=== PATIENT | female | born 1980 | race Caucasian/White ===

== ENCOUNTER → 2017-11-22 10:23 | Outpatient (CLI) | payer MEDICARE, MEDICAID, SELFPAY ==
[2017-11-22 12:55] LABS: Anion Gap 5 (5-15); BUN 19 mg/dL (7-18); BUN/Creat Ratio 23.5 RATIO (10-20); Calcium,Total 8.4 mg/dL (8.5-10.1); Chloride 110 mmol/L (98-107); Creatinine, Serum 0.81 mg/dL (0.55-1.02); EST Glomerular Filtration Rate 84 mL/min (>60); Est Glom Filt Rate - Afr Amer 101 mL/min (>60); Glucose 97 mg/dL (74-106); Potassium 3.9 mmol/L (3.5-5.1); Sodium Level 139 mmol/L (136-145)
== END ==
PROVIDERS: Family Provider Family Medicine; PCP Family Medicine; Visit Provider Family Medicine
DX: G43.819 Other migraine, intractable, without status migrainosus (principal)
CPT/HCPCS: 36415; 80048; 80201

== ENCOUNTER 2018-01-28 06:03 | Day surgery (SDC) | payer MEDICARE, MEDICAID, SELFPAY ==
[2018-01-28] VITALS (7 sets, daily range): BP systolic 100–114; BP diastolic 79–88; PULSE 46–81; RESP 12–16; TEMP 36.1–37.6; O2SAT 94–100; BMI 23.1
[2018-01-28] MEDS: Dibucaine 30 GM Tube 1 APPLIC (07:53)
[2018-01-28] MEDS: Bupivacaine Mpf 0.5% 30 ML VIAL (08:00)
--- NOTE | 2018-01-28 08:07 | PCM.OPRPT ---
Report of Operation Date of Procedure: 01/28/18 Pre-Operative Diagnosis: anal pain, suspect posterior fissure Post-Operative Diagnosis: anal pain, small posterior anal fissure, no other abnormalities Surgery/Procedure Performed:: examination under anesthesia, lateral internal sphincterotomty brickmason helper: None Type of Anesthesia:: General Anesthesiologist: Robert Egan - ASA2 Specimen's removed: none Estimated Blood Loss (mL): minimal Fluids Replaced: 500 Description of Procedure: The patient was brought to the operating suite. Sign in was performed verifying patient, site, procedure, position, and DVT prophylaxis with SCDs. Clindamycin 900mg was given Following induction of general anesthetic. The patient was transferred to supine position to the prone jackknife position with care being taken to avoid pressure points. The patient?s perineal area was then prepped and draped in the usual fashion. Timeout was performed verifying patient, site, procedure, and position. Bi digital exam revealed no obvious palpable abnormalities external abnormalities. There was a posterior midline fissure noted by palpation. Anoscopy demonstrated a posterior midline fissure without additional abnormalities. A left lateral skin incision was made just lateral to the dentate line. Electrocautery was used to divide the superficial external sphincter to the same depth posteriorly as the posterior midline fissure. Care was taken to assure there was not excessive division of the sphincter. Following this the skin incision was closed with 4-0 chromic suture. With good hemostasis, half percent Marcaine was injected in the perianal skin and dibucaine impregnated Gelfoam was placed in the anal canal. A dressing was applied and mesh pants were used to hold the dressing in place. The patient was returned to the supine position and extubated and brought to recovery room in stable condition. - Admit VTE Documentation VTE Present on Admission: No VTE Mechan Device Prophylaxis: SCD's VTE Pharm Prophylaxis ordered?: No
--- NOTE | 2018-01-28 08:10 | OP.PCM_ITS ---
Report of Operation Date of Procedure: 01/28/18 Pre-Operative Diagnosis: anal pain, suspect posterior fissure Post-Operative Diagnosis: anal pain, small posterior anal fissure, no other abnormalities Surgery/Procedure Performed:: examination under anesthesia, lateral internal sphincterotomty medical housekeeper: None Type of Anesthesia:: General Anesthesiologist: Robert Egan - ASA2 Specimen's removed: none Estimated Blood Loss (mL): minimal Fluids Replaced: 500 Description of Procedure: The patient was brought to the operating suite. Sign in was performed verifying patient, site, procedure, position, and DVT prophylaxis with SCDs. Clindamycin 900mg was given Following induction of general anesthetic. The patient was transferred to supine position to the prone jackknife position with care being taken to avoid pressure points. The patient?s perineal area was then prepped and draped in the usual fashion. Timeout was performed verifying patient, site, procedure, and position. Bi digital exam revealed no obvious palpable abnormalities external abnormalities. There was a posterior midline fissure noted by palpation. Anoscopy demonstrated a posterior midline fissure without additional abnormalities. A left lateral skin incision was made just lateral to the dentate line. Elec trocautery was used to divide the superficial external sphincter to the same depth posteriorly as the posterior midline fissure. Care was taken to assure there was not excessive division of the sphincter. Following this the skin incision was closed with 4-0 chromic suture. With good hemostasis, half percent Marcaine was injected in the perianal skin and dibucaine impregnated Gelfoam was placed in the anal canal. A dressing was applied and mesh pants were used to hold the dressing in place. The patient was returned to the supine position and extubated and brought to recovery room in stable condition. - Admit VTE Documentation VTE Present on Admission: No VTE Mechan Device Prophylaxis: SCD's VTE Pharm Prophylaxis ordered?: No
--- NOTE | 2018-01-28 08:19 | DCINST_ITS ---
Discharge Diet: No Restrictions Discharge Activity: Return to Normal Activity, May Not Drive - while taking narcotic pain medications. Additional Activity Instructions:: Do not drive or work with heavy equipment or sign legal documents for 24 hours. Be aware that pain medications may cause nausea. You should typically eat light foods as you take your pain medications. Pain medications may also cause constipation, if you have difficulty with this please discuss with your doctor. Additional Dressing/Incision Instructions:: Leave the operative bandage on for 2 days. If a local anesthetic plug was placed in the anal area, try not to expel for 24-[address] dibucaine ointment on the perianal area as needed. Sitz baths twice daily and after bowel movements. Allergies/Adverse Reactions: Allergies calcium [From DHEA] Allergy (Mild, Verified 01/24/18 12:42) Unknown calcium carbonate [From DHEA] Allergy (Mild, Verified 01/24/18 12:42) Unknown metronidazole [From Flagyl] Allergy (Mild, Verified 01/24/18 12:42) Unknown oxcarbazepine [From Trileptal] Allergy (Mild, Verified 01/24/18 12:42) Unknown prasterone (DHEA) [From DHEA] Allergy (Mild, Verified 01/24/18 12:42) Unknown sumatriptan [From Imitrex] Allergy (Mild, Verified 01/24/18 12:42) Unknown duloxetine [From Cymbalta] Allergy (Verified 01/24/18 12:43) Unknown gabapentin [From Neurontin] Allergy (Verified 01/24/18 12:43) Unknown hydromorphone [From Dilaudid] Allergy (Verified 01/24/18 12:44) Unknown keppra Allergy (Mild, Uncoded 01/24/18 12:42) Unknown Medications to take at Discharge acyclovir 400 mg tablet 400 mg PO BID PRN 01/25/17 aspirin 81 mg tablet,delayed release 81 mg PO QHS 01/25/17 clobazam 10 mg tablet 10 mg PO BID 01/25/17 lacosamide 100 mg tablet 300 mg PO BID 01/25/17 spironolactone 100 mg tablet 100 mg PO QDAY 01/25/17 topiramate 100 mg tablet 300 mg PO BID 03/06/17 Linacolotide [Linzess] 145 mcg PO DAILY 01/24/18 Spironolactone [Aldactone] 50 mg PO QHS 01/24/18 Dibucaine 1 applic TOPICAL PRN PRN #1 tube 01/28/18 Oxycodone HCl/Acetaminophen [Percocet 5/325] 1 tab PO Q6H PRN PRN 7 Days #14 tab 01/28/18 The following prescriptions were given: Oxycodone HCl/Acetaminophen [Percocet 5/325] 1 tab PO Q6H PRN PRN 7 Days #14 tab PRN Reason: Anal/Rectal Irritations Dibucaine 1 applic TOPICAL PRN PRN #1 tube PRN Reason: Anal/Rectal Irritations Primary Care Physician: Major Garner MD [Primary Care Provider] - Test Results: Test results from this visit will be discussed in further detail at your follow- up appointment, if applicable. Please Follow Up With: Aris Cook MD - [phone] When: Plan to have a follow up approximately 7 days after surgery.
[2018-01-28] MEDS: oxyCODONE 5 MG Tablet PO (09:39)
[2018-01-28] MEDS: Acetaminophen 325 MG Tablet PO (09:40)
== END 2018-01-28 10:22 | disposition home or self-care (01) ==
LOC: SDC 06:03 → AC 06:05
PROVIDERS: Family Provider Family Medicine; PCP Family Medicine; Referring Provider Surgery; Visit Provider Surgery
PROC: (CPT 46080; principal; 2018-01-28 07:15)
DX: K60.2 Anal fissure, unspecified (principal); G40.909 Epilepsy, unspecified, not intractable, without status epilepticus; A60.9 Anogenital herpesviral infection, unspecified; F43.23 Adjustment disorder with mixed anxiety and depressed mood; Z79.82 Long term (current) use of aspirin; Z79.899 Other long term (current) drug therapy; Z86.73 Personal history of transient ischemic attack (TIA), and cerebral infarction without residual deficits; Z86.2 Personal history of diseases of the blood and blood-forming organs and certain disorders involving the immune mechanism
CPT/HCPCS: 00902; 46080; J7120

== ENCOUNTER → 2018-04-11 08:54 | Outpatient (CLI) | payer MEDICARE, MEDICAID, SELFPAY ==
[2018-01-28 06:43] VITALS: BMI 23.1
[2018-03-21 09:17] VITALS: BMI 23.1
--- NOTE | 2018-04-11 08:59 | BI_ITS ---
MAMMOGRAPHY - BILATERAL SCREENING REASON FOR EXAM: Female, 37 years old. Routine annual screening examination. PERTINENT HISTORY: Non-contributory. TECHNIQUE: Digital bilateral breast chalino (3D mammographic acquisition) in the CC and MLO projections. 2-D mediolateral oblique (MLO) and craniocaudad (CC) views of both breasts were obtained. CAD: Full Field Digital Mammography with Computer Added Detection was performed. COMPARISON: Comparison is made with prior study dated March 14, 2017 and February 09, 2016. FINDINGS: Breast Composition: The breasts are heterogeneously dense, which may obscure small masses. There are no dominant masses or suspicious calcifications. Questionable 1.7 cm nodular density in the upper outer aspect of the left breast. Correlation with ultrasound is recommended. No other significant abnormalities are identified. BI/SCREEN MAMM (CAD) W/CHALINO BILAT IMPRESSION: Possible 1.7 cm well-defined nodular density in the upper outer quadrant of the left breast. Correlation with ultrasound is recommended. ASSESSMENT CATEGORY: BIRADS Category 0: Incomplete. Need additional imaging evaluation. A letter regarding these results will be sent to the patient by the facility within 30 days. Approximately 10% of breast cancers are not detected by mammography. A normal mammogram should not delay biopsy of a clinically suspicious abnormality. [id number] Electronically Signed: Cyrus Haywood MD at 10:18 EST , Service support ,
== END ==
PROVIDERS: Family Provider Family Medicine; PCP Family Medicine; Visit Provider Nurse Practitioner Women's Health
DX: Z12.31 Encounter for screening mammogram for malignant neoplasm of breast (principal)
CPT/HCPCS: 77063; 77067

== ENCOUNTER → 2018-04-19 08:23 | Outpatient (CLI) | payer MEDICARE, MEDICAID, SELFPAY ==
[2018-03-21 09:17] VITALS: BMI 23.1
--- NOTE | 2018-04-19 08:27 | US_ITS ---
STUDY: ULTRASOUND BREAST - LEFT REASON FOR EXAM: Female, 37 years old. Abnormal screening mammogram. TECHNIQUE: Axial and longitudinal images of the LEFT breast were performed with a high resolution ultrasound transducer. COMPARISON: Comparison is made with prior mammogram dated April 11, 2018 FINDINGS: LEFT Breast: The lateral upper half of the left breast was examined by ultrasound. No sonographic abnormality is seen. Routine annual mammographic follow-up is recommended. US/Breast Limited Unilateral IMPRESSION: No sonographic abnormality is seen. ASSESSMENT CATEGORY: BIRADS Category 2: Benign. A letter regarding these results will be sent to the patient by the facility within 30 days. Electronically Signed: Cyrus Haywood, at 10:42 EST , Service support ,
== END ==
PROVIDERS: Family Provider Family Medicine; PCP Family Medicine; Referring Provider Nurse Practitioner Women's Health; Visit Provider Nurse Practitioner Women's Health
DX: R92.8 Other abnormal and inconclusive findings on diagnostic imaging of breast (principal)
CPT/HCPCS: 76642

== ENCOUNTER → 2018-11-13 11:53 | Outpatient (CLI) | payer MEDICARE, MEDICAID, SELFPAY ==
[2018-10-14 13:29] VITALS: BMI 23.1
[2018-11-13 14:11] LABS: Erythrocyte Sedimentation Rate < 1 mm/hr (0-20)
[2018-11-13 14:13] LABS: Absolute Lymphocyte Count 0.82 X10^3/uL (0.83-4.51); Basophil# 0.02 X10^3/uL; Basophil% 0.5 % (0-1); Eosinophil# 0.04 X10^3/uL; Hematocrit 39.8 % (37-47); Hemoglobin 12.8 g/dL (12.0-15.0); Lymphocyte # 0.82 X10^3/ul (4.0); Lymphocyte % 19.7 % (19-41); Mean Corp Hgb Conc 32.2 g/dL (32-36); Mean Corpuscular Hgb 30.3 pg (27.0-32.0); Mean Corpuscular Volume 94.1 fL (81-99); Mean Platelet Vol. 10.2 fl (6.2-12.0); Monocyte# 0.31 X10^3/uL; Monocyte% 7.5 % (0-10); NRBC Flagged by Analyzer 0 % (0-5); Neutrophil # 2.96 X10^3/uL (2.7-7.7); Neutrophil % 71.1 % (47-70); Platelet Count 208 K/mm3 (150-450); RBC Distribution Width CV 12.3 % (11.6-14.6); RBC Distribution Width SD 42.4 fl (35.1-43.9); Red Blood Count 4.23 M/mm3 (4.2-5.4); White Blood Count 4.2 K/mm3 (4.4-11.0)
[2018-11-13 14:26] LABS: Vitamin D,25 Hydroxy 30.8 ng/mL (29.95-100.01)
[2018-11-13 14:29] LABS: ALB/GLOB Ratio 1.3 RATIO (0.9-2.4); AST(SGOT) 16 U/L (15-37); Alanine Aminotransfer ALT/SGPT 20 U/L (13-56); Albumin, Serum 3.9 g/dL (3.2-5.0); Alkaline Phosphatase 57 U/L (45-117); Anion Gap 7 (5-15); BUN 18 mg/dL (7-18); BUN/Creat Ratio 23.1 RATIO (10-20); Calcium,Total 8.1 mg/dL (8.5-10.1); Chloride 111 mmol/L (98-107); Creatinine, Serum 0.78 mg/dL (0.55-1.02); EST Glomerular Filtration Rate 87 mL/min (>60); Est Glom Filt Rate - Afr Amer 105 mL/min (>60); Globulin 2.9 g/dL (2.2-4.2); Glucose 82 mg/dL (74-106); Potassium 3.8 mmol/L (3.5-5.1); Prealbumin 18.5 mg/dL (20.0-40.0); Protein, Total 6.8 g/dL (6.4-8.2); Sodium Level 142 mmol/L (136-145); Thyroid Stim Hormone (TSH) 1.37 uIU/mL (0.358-3.74)
== END ==
PROVIDERS: Family Provider Family Medicine; PCP Family Medicine; Referring Provider Family Medicine; Visit Provider Family Medicine
DX: G43.819 Other migraine, intractable, without status migrainosus (principal); R63.4 Abnormal weight loss
CPT/HCPCS: 36415; 80053; 82306; 84134; 84443; 85025; 85652

== ENCOUNTER → 2018-11-18 11:14 | Outpatient (CLI) | payer MEDICARE, MEDICAID, SELFPAY ==
[2018-10-14 13:29] VITALS: BMI 23.1
[2018-11-18 13:02] LABS: PTHIN 18.9 pg/mL (18.4-80.1)
[2018-11-18 13:14] LABS: Phosphorus 3.4 mg/dL (2.5-4.9)
== END ==
PROVIDERS: Family Provider Family Medicine; PCP Family Medicine; Referring Provider Family Medicine; Visit Provider Family Medicine
DX: E83.51 Hypocalcemia (principal)
CPT/HCPCS: 36415; 82330; 83735; 83970; 84100

== ENCOUNTER → 2019-04-14 07:40 | Outpatient (CLI) | payer MEDICARE, MEDICAID, SELFPAY ==
[2019-03-24 09:07] VITALS: BMI 23.1
--- NOTE | 2019-04-14 07:40 | BI_ITS ---
MAMMOGRAPHY - BILATERAL SCREENING REASON FOR EXAM: Female, 38 years old. Routine annual screening examination. PERTINENT HISTORY: Previously obtained on 04/11/2018 BILATERAL DIGITAL MAMMOGRAM WITH TOMOSYNTHESIS: Mediolateraloblique and craniocaudal views demonstrate no evidence of dominant parenchymal masses. No cluster of microcalcifications or architectural distortion is seen. No evidence of skin thickening is identified. There has been no significant change since 04/11/2018. Breast Density: The breast tissue is extremely dense which may lower the sensitivity of mammography. CAD was used to assist in final assessment. IMPRESSION: NORMAL MAMMOGRAM BILATERALLY. FINAL ASSESSMENT: BIRAD 1 (NEGATIVE) YEARLY MAMMOGRAM RECOMMENDED Electronically Signed: Trell Mcgrath, at 17:00 EST Tel , Service support , BI/SCREEN MAMM (CAD) W/CHALINO ASH
== END ==
PROVIDERS: PCP Family Medicine; Referring Provider Nurse Practitioner Women's Health; Visit Provider Nurse Practitioner Women's Health
DX: Z12.31 Encounter for screening mammogram for malignant neoplasm of breast (principal)
CPT/HCPCS: 77063; 77067

== ENCOUNTER → 2019-07-23 16:45 | Outpatient (CLI) | payer MEDICARE, MEDICAID, SELFPAY ==
[2019-03-24 09:07] VITALS: BMI 23.1
--- NOTE | 2019-07-23 16:49 | RAD_ITS ---
STUDY: X-RAY - ABDOMEN/PELVIS REASON FOR EXAM: Female, 38 years old. WATERY DIARRHEA, STOMACH UPSET TECHNIQUE: Flat and upright COMPARISON: None. FINDINGS: Normal visualized lung bases. There is an unremarkable bowel gas pattern. There is no demonstrated free abdominal air. The visualized liver, spleen and kidneys are grossly normal in size and morphology. Normal soft tissue structures. Normal visualized osseous structures. RAD/Abd Inc Decub and/or Erect IMPRESSION: Normal x-ray examination of the abdomen and pelvis. Electronically Signed: Dinesh Wick MD at 21:46 EDT , Service support ,
== END ==
PROVIDERS: PCP Family Medicine; Referring Provider Family Medicine; Visit Provider Family Medicine
DX: K58.9 Irritable bowel syndrome, unspecified (principal)
CPT/HCPCS: 74019

== ENCOUNTER 2020-03-05 13:26 | Day surgery (SDC) | payer MEDICARE, MEDICAID, SELFPAY ==
[2019-03-24 09:07] VITALS: BMI 23.1
--- NOTE | 2020-03-04 18:02 | HP.PCM_ITS ---
History and Physical Date of Admission: 03/05/20 CC: constipation, family history of colon cancer, history of colon polyps History of present illness: Susan Schwartz a 39 year old female who is a consultation requested by Dr. Day, for an opinion regarding chronic constipation. My final recommendations will be communicated back to the requesting provider by way of shared Medical record. The patient reports a family history of colon cancer in that her father was diagnosed with the disease 4 years ago, at age 58. She tells me that she had a colonoscopy back when she was about 18 years old and polyps were removed. No procedure since. The patient has a history of anal fissure in addition to the constipation.. Reports that the fissure hasn't completely healed and is quite sensitive. The patient has a history of a stroke on 2002, transverse sinus thrombosis, seizures, migraine headaches, ERNA. Presenting complaint: The patient presents today reporting I just can't go to the bathroom. Her significant other states that she has a hypersensitivity and some of her medications are causing a problem. Drinks 5-6 bottles of water daily. Uses a capful of Miralax daily to try to make the stool soft. She has small little rabbit poop bowel movements daily, but can go a week between good bowel movements. Reports that she has tried Benefiber and other fiber supplements, but they just bind me up Reports that the Linzess gave her diarrhea that she had a wear a diaper for. (even at the lowest dose) Reports that the lactulose didn't seem to work. The senna also didn't seem to do much. Uses an enema as needed. PAST MEDICAL HISTORY Acute, but ill-defined, cerebrovascular disease secondary to transverse sinus thrombosis Adjustment disorder with mixed anxiety and depressed mood 2002 in context of divorce Condyloma acuminatum 2006 Endometriosis, site unspecified 2009 Endometriosis - Stage 4 Epilepsy (HCC) Excessive or frequent menstruation Resolved Genital herpes Iron deficiency anemia, unspecified Mild dysplasia of cervix 08/27/02 and 2005 Other forms of migraine Partial seizures (HCC) partial complex seizures Stroke (HCC) 2003 Unspecified constipation PAST SURGICAL HISTORY ANGIOPLASTY 2003 carotid artery APPENDECTOMY 2010 BRAIN SURGERY HX 12/05/10 COLPOSCOPY (VAGINOSCOPY) 08/27/022005 Colposcopy CRANIOTOMY TEMPORL LOBECTOMY 11/19/2009 Performed by TEDDY ROMERO at [facility] EUArsiteo 01/28/2018 lateral internal sphincterotomy HYSTERECTOMY HX [facility] No BSO PAST SURGICAL HISTORY OF 05/28 Laparoscopic bilateral ovarian cystecomies with ureterolysis, excision of endometriosis STERO.C-A VOL. INTRACRAIN FAMILY HISTORY Colon Cancer Father Diabetes Maternal Grandmother Hypertension Maternal Grandmother Heart Maternal Grandmother Diabetes Paternal Grandmother Diabetes Maternal Uncle nesthesia Problems No Family History Blood Clots No Family History Clotting Disorder CURRENT MEDICATIONS spironolactone (ALDACTONE) 100 mg tablet Take 1 tablet by mouth twice daily. One pill in the morning and half pill at bed time. 135 tablet doxepin capsule 10 mg Take 1 capsule by mouth daily at bedtime. 30 capsule lactulose (DUPHALAC, CONSTULOSE) 10 g/15 mL soln Please take 20 ml once or twice a day if constipated for the 3/4 days 1 Bottle 1 nitroglycerin (NITRO-DUR) 0.2 mg/hr Apply 1 Patch as directed once daily. APPLY FOR 12 HOURS AND REMOVE FOR 12 HOURS, EACH DAY. 30 Patch senna-docusate (SENNA-S) 8.6-50 mg per tablet Take 1-2 tablets by mouth once daily. 60 tablet 1 cloBAZam (ONFI) 10 mg tab tablet Take 1 tablet by mouth twice daily for 180 days. 180 tablet ergocalciferol 50,000 unit capsule (VITAMIN D2, DRISDOL) Take 1 capsule by mouth one time a week. (Patient not taking: Reported on 12/10/2019 12 capsule baclofen (LIORESAL) 10 mg tablet Take 0.5-1 tablets by mouth three times daily as needed. MAY CAUSE DROWSINESS. USE WITH CAUTION. (Patient not taking: Reported on 12/10/2019 60 tablet 2 lidocaine viscous (LIDOCAINE VISCOUS) 2 % solution Take 20 mL by mouth as needed. (Patient not taking: Reported on 12/10/2019 120 mL 5 lacosamide (VIMPAT) 200 mg Take 1.5 tablets by mouth twice daily. 270 tablet 1 polyethylene glycol 3350 (MIRALAX) 17 gram/dose powder Take by mouth once daily. MULTIVITAMIN ORAL Take by mouth. ergocalciferol, vitamin D2, (VITAMIN D2 ORAL) Take 50 mg by mouth once daily. topiramate (TOPAMAX) 200 mg tablet Take 1.5 tabs AM and 1.5 tabs in the PM for total of 600 mg/day 270 tablet NIFED 2% ointment aspirin, enteric coated (ECOTRIN LOW STRENGTH) 81 mg ORAL EC tablet Take 81 mg by mouth daily at bedtime. No current facility-administered medications for this visit. SOCIAL HISTORY: Patient is and lives with her significant other. She has never smoked. Susan reports her alcohol use as never. REVIEW OF SYSTEMS: GENERAL: No weight loss, malaise or fevers RESPIRATORY: Negative for cough, hemoptysis, wheezing, COPD, dyspnea or shortness of breath CARDIOVASCULAR: Negative for chest pain, leg swelling, hypertension, CHF or palpitations GI: The patient states that her appetite has been good. She does get hungry. There has been no nausea, no vomiting. She denies dysphagia and denies odynophagia. There has not been indigestion or heartburn. There has not been regurgitation. Bowel habits have been regular. There has not been diarrhea. There has partially been constipation. The patient denies rectal bleeding. There has not been melena. No abdominal pain. VP INTEGRATION: Negative for abnormal vaginal bleeding, abnormal vaginal discharge. LMP: hyst in 2009. MUSCULOSKELETAL: Negative for joint pain or swelling, back pain or muscle pain PSYCH: Positive for depression and anxiety HEMATOLOGY/LYMPHOLOGY Negative for prolonged bleeding, bruising easily or swollen nodes ENDOCRINE: Negative for cold or heat intolerance, polyuria, polydipsia and goiter NEURO: Seizures All other reviewed and negative other than HPI. PHYSICAL EXAMINATION: General Appearance: Well appearing, alert, in no acute distress, well-hydrated, well nourished. Skin: Skin color normal. Head: Normocephalic, no obvious abnormalities. Eyes: Anicteric sclera. Pupils are equally round. Oropharynx: Lips, tongue and teeth normal. Neck: No obvious masses. Breathing easily and unlabored. Able to speak in complete sentences. Abdomen: Doesn't appear to be tender. Neurologic: Alert and oriented. Good judgement. Answers apporpriately. Impression: chronic constipation 2)history of polyps 3)family history of colon cancer 4)anal fissure Plan: Increase Miralax to twice a day. This patient will be scheduled for a colonoscopy using Miralax prep 2 consecutive days, as the prep. The preparation, as well as the procedure, has been explained in detail. The risks, benefits, anticipated outcomes and possible complications, including failure to complete the endoscopy and perforation, were mentioned. I explained the procedure in understandable terms and the patient was given printed material concerning the planned procedure. The patient had the opportunity to ask questions concerning the planned procedure. The patient freely consents to the planned procedure. The patient is scheduled for a procedure at the [facility], with MAC. I have explained that his/her health and safety, as well as that of our staff is important. The risk of exposure to, or potential harm posed by the COVID-19 virus with having a procedure at this time is as minimal as possible. Measures are being taken to minimize any potential risk of infection. I have explained that he/she will see that the staff will be wearing masks and gloves. The patient's temperature will be taken on arrival, they will be asked a series of questions to reassess current wellness, and asked to use hand aircraft avionics technician foam. The bed areas are cleaned and the procedure rooms are thoroughly disinfected between patients. Procedure rooms will be alternated to give the disinfection more than enough time to ensure adequate protection for all involved. Anna Ortiz RN PRESS OPERATOR [employer].FINISHING LAB TECHNICIAN
[2020-03-05] VITALS (7 sets, daily range): BP systolic 95–105; BP diastolic 70–80; PULSE 65–87; RESP 16; TEMP 36–37.9; O2SAT 97–100; BMI 19.5
[2020-03-05] MEDS: Lactated Ringers 1,000 ML 100 ML IV (13:47)
--- NOTE | 2020-03-05 14:50 | OP.CCLET_ITS ---
03/05/2020 Dora Day [address] [id number] Re : Colonoscopy procedure for Susan Schwartz Dear Dr. Day This procedure was performed on Thursday, March 05, 2020. My impressions and recommendations are as follows: Impressions : - Non-bleeding internal hemorrhoids. - No specimens collected. Recommendations : - Repeat colonoscopy in 10 years for screening purposes. - Return to primary care physician PRN. - Continue present medications. My findings are described in the full procedure note, which is enclosed. If I can be of further assistance, please feel free to contact me at Doctor phone number(s): , Work: . Sincerely, MD Kyung Bowen MD 03/05/2020 2:49:59 PM This report has been signed electronically.
--- NOTE | 2020-03-05 14:50 | OP.COLON_ITS ---
Patient Name: Susan Schwartz Procedure Date: 03/05/2020 2:03 PM Date of : 1980 Age: 39 Procedure: Colonoscopy Indications: Lower abdominal pain, Constipation Providers: Kyung Diane MD Referring MD: Doar Day Medicines: See the Anesthesia note for documentation of the administered medications Patient Profile: Refer to note in patient chart for documentation of history and physical. Last Colonoscopy: date unknown. Unable to locate last colonoscopy report. Complications: No immediate complications. Procedure: Pre-Anesthesia Assessment: - see anesthesia note After I obtained informed consent, the scope was passed under direct vision. Throughout the procedure, the patient's blood pressure, pulse, and oxygen saturations were monitored continuously. The pediatric colonoscope was introduced through the anus and advanced to the cecum, identified by the appendiceal orifice, IC valve and transillumination. The colonoscopy was performed without difficulty. The patient tolerated the procedure well. The quality of the bowel preparation was adequate. Scope In: 2:26:24 PM Scope Withdrawal Time 0 hours 6 minutes 50 seconds Scope Out: 2:42:31 PM Total Procedure Duration Time 0 hours 16 minutes 7 seconds Findings: The perianal and digital rectal examinations were normal. Pertinent negatives include normal sphincter tone. Non-bleeding internal hemorrhoids were found. Impression: - Non-bleeding internal hemorrhoids. - No specimens collected. Recommendation: - Repeat colonoscopy in 10 years for screening purposes. - Return to primary care physician PRN. - Continue present medications. Procedure Code(s): --- Professional --- 93552, Colonoscopy, flexible; diagnostic, including collection of specimen(s) by brushing or washing, when performed (separate procedure) Diagnosis Code(s): --- Professional --- K64.8, Other hemorrhoids R10.30, Lower abdominal pain, unspecified K59.00, Constipation, unspecified CPT copyright 2017 [employer]. All rights reserved. The codes documented in this report are preliminary and upon viscera washer review may be revised to meet current compliance requirements. MD Kyung Bowen MD 03/05/2020 2:49:59 PM This report has been signed electronically. Number of Addenda: 1 Note Initiated On: 03/05/2020 2:03 PM Addendum Number: 1 Addendum Date: 03/05/2020 3:43:38 PM Patient with first degree family history of colon cancer, father dx'd with colon cancer at age 58. Therefore patient will require colonoscopy every 5 years for surveillance. (The above recommendation for screening colonoscopy in 10 years is an error.) MD Kyung Bowen MD 03/05/2020 3:45:01 PM This report has been signed electronically.
== END 2020-03-05 15:55 | disposition home or self-care (01) ==
LOC: EN 13:27 → AC 13:44
PROVIDERS: PCP Internal Medicine; Referring Provider Internal Medicine; Visit Provider Surgery
PROC: 0DJD8ZZ Inspection of Lower Intestinal Tract, Via Natural or Artificial Opening Endoscopic (ICD-10-PCS; CPT 45378; principal; 2020-03-05 14:25)
DX: K64.8 Other hemorrhoids (principal); K59.09 Other constipation; R10.30 Lower abdominal pain, unspecified; K60.2 Anal fissure, unspecified; K58.9 Irritable bowel syndrome, unspecified; D50.9 Iron deficiency anemia, unspecified; G43.909 Migraine, unspecified, not intractable, without status migrainosus; G40.909 Epilepsy, unspecified, not intractable, without status epilepticus; Z86.010 Personal history of colon polyps; Z79.82 Long term (current) use of aspirin; Z79.899 Other long term (current) drug therapy; Z20.822 Contact with and (suspected) exposure to COVID-19; Z86.73 Personal history of transient ischemic attack (TIA), and cerebral infarction without residual deficits; Z80.0 Family history of malignant neoplasm of digestive organs
CPT/HCPCS: G0105; 87426; C9803; J7120

== ENCOUNTER → 2020-04-15 08:37 | Outpatient (CLI) | payer MEDICARE, MEDICAID, SELFPAY ==
[2019-03-24 09:07] VITALS: BMI 23.1
[2020-03-25 09:21] VITALS: BMI 20.9
--- NOTE | 2020-04-15 08:39 | BI_ITS ---
MAMMOGRAPHY - BILATERAL SCREENING REASON FOR EXAM: Female, 39 years old. Routine annual screening examination. PERTINENT HISTORY: Non-contributory. TECHNIQUE: Digital bilateral breast chalino (3D mammographic acquisition) in the CC and MLO projections. 2-D mediolateral oblique (MLO) and craniocaudad (CC) views of both breasts were obtained. CAD: Full Field Digital Mammography with Computer Added Detection was performed. COMPARISON: Comparison is made with prior study dated 04/14/2019 and 04/11/2018. FINDINGS: Breast Composition: The breasts are extremely dense, which lowers the sensitivity of mammography. There are no dominant masses or suspicious calcifications. There is an 8 mm well-defined nodule in the deep upper outer aspect of the left breast. Correlation with ultrasound is recommended. No other significant abnormalities are identified. BI/SCRN MAMM (CAD)W/CHALINO BILAT IMPRESSION: A millimeter well-defined nodule in the deep upper outer aspect of the left breast. Correlation with ultrasound is recommended. ASSESSMENT CATEGORY: BIRADS Category 0: Incomplete. Need additional imaging evaluation. A letter regarding these results will be sent to the patient by the facility within 30 days. Approximately 10% of breast cancers are not detected by mammography. A normal mammogram should not delay biopsy of a clinically suspicious abnormality. [id number] Electronically Signed: Cyrus Haywood MD at 9:16 EST , Service support ,
== END ==
PROVIDERS: PCP Family Medicine; Referring Provider Internal Medicine; Visit Provider Internal Medicine
DX: Z12.31 Encounter for screening mammogram for malignant neoplasm of breast (principal); N63.21 Unspecified lump in the left breast, upper outer quadrant
CPT/HCPCS: 77063; 77067

== ENCOUNTER → 2020-04-22 09:29 | Outpatient (CLI) | payer MEDICARE, MEDICAID, SELFPAY ==
[2020-03-25 09:21] VITALS: BMI 20.9
--- NOTE | 2020-04-22 09:31 | US_ITS ---
STUDY: ULTRASOUND BREAST - LEFT REASON FOR EXAM: Female, 39 years old. Abnormal screening mammogram. TECHNIQUE: Axial and longitudinal images of the LEFT breast were performed with a high resolution ultrasound transducer. # OF IMAGES: 40 COMPARISON: Comparison is made with prior mammogram dated 04/15/2020 and prior sonogram of the left breast dated 04/19/2018. FINDINGS: LEFT Breast: There is a 6 mm x 5 mm x 3 mm cyst at the 2 o''clock position of the breast at 4 cm from nipple. US/Breast Limited Unilateral IMPRESSION: 6 mm x 5 mm x 3 mm cyst at the 2 o''clock position of the breast at 4 cm from the nipple. ASSESSMENT CATEGORY: BIRADS Category 2: Benign. A letter regarding these results will be sent to the patient by the facility within 30 days. Electronically Signed: Cyrus Haywood MD at 10:36 EST , Service support ,
== END ==
PROVIDERS: PCP Internal Medicine; Referring Provider Internal Medicine; Visit Provider Internal Medicine
DX: R92.8 Other abnormal and inconclusive findings on diagnostic imaging of breast (principal)
CPT/HCPCS: 76642

== ENCOUNTER 2021-04-18 09:52 | Outpatient (CLI) | payer MEDICARE, MEDICAID, SELFPAY ==
--- NOTE | 2021-04-18 09:56 | BI_ITS ---
MAMMOGRAPHY - BILATERAL SCREENING REASON FOR EXAM: Female, 40 years old. Routine annual screening examination. PERTINENT HISTORY: Non-contributory. TECHNIQUE: Digital bilateral breast chalino (3D mammographic acquisition) in the CC and MLO projections. 2-D mediolateral oblique (MLO) and craniocaudad (CC) views of both breasts were obtained. CAD: Full Field Digital Mammography with Computer Added Detection was performed. COMPARISON: Comparison is made with prior study dated 04/15/2020 and 04/14/2019. FINDINGS: Breast Composition: The breasts are extremely dense, which lowers the sensitivity of mammography. There are no dominant masses or suspicious calcifications. The previously seen 8 mm well-defined nodule in the deep upper lateral aspect of the left breast is not seen at this time. No other significant abnormalities are identified. There has been no significant change since the prior study. BI/SCRN MAMM (CAD)W/CHALINO BILAT IMPRESSION: Stable bilateral screening mammogram. Yearly follow-up mammogram recommended. (A) ASSESSMENT CATEGORY: BIRADS Category 1: Negative. A letter regarding these results will be sent to the patient by the facility within 30 days. Approximately 10% of breast cancers are not detected by mammography. A normal mammogram should not delay biopsy of a clinically suspicious abnormality. [id number] Electronically Signed: Cyrus Haywood MD at 13:22 EST ,
== END 2021-04-18 23:59 | disposition home or self-care (01) ==
LOC: OPBI 09:54
PROVIDERS: PCP Internal Medicine; Visit Provider Internal Medicine
DX: Z12.31 Encounter for screening mammogram for malignant neoplasm of breast (principal)
CPT/HCPCS: 77063; 77067

== ENCOUNTER 2021-12-22 18:22 | Emergency (ER) | payer OTHER, MEDICARE, MEDICAID, SELFPAY ==
[2021-12-22 18:22] VITALS: BP 119/87; PULSE 77; RESP 18; TEMP 36.6; O2SAT 98; BMI 20.3
--- NOTE | 2021-12-22 19:37 | RAD_ITS ---
INDICATION: Injury/Pain EXAMINATION/TECHNIQUE: X-RAY - XR Spine Thoracic 3 Views COMPARISON: None FINDINGS: VERTEBRAE: Preserved vertebral body height. No fracture. No spondylolisthesis. Preservation of the normal thoracic kyphosis. No significant facet arthropathy. DISCS: Disc spaces are maintained. INCLUDED CHEST/ABDOMEN: No acute abnormalities. RAD/Thoracic Spine 3 Views IMPRESSION: No evidence of thoracic spinal fracture or spondylolisthesis. Electronically Signed: Meliton Agudelo MD at 20:19 EDT ,
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
--- NOTE | 2021-12-22 19:59 | RAD_ITS ---
INDICATION: LOW BACK PAIN EXAMINATION/TECHNIQUE: X-RAY - XR Spine Lumbar 2 or 3 Views COMPARISON: None. FINDINGS: VERTEBRAE: Preserved vertebral body height. No fracture. No spondylolisthesis. Preservation of the normal lumbar lordosis. Mild multilevel facet arthropathy. DISCS: Mild multilevel degenerative disc disease and spondylosis. INCLUDED ABDOMEN: Included bowel gas pattern is non-obstructive. Large amount of retained stool in colon. RAD/Lumbar Spine 2 or 3 Views IMPRESSION: No evidence of lumbar spinal fracture or spondylolisthesis. Mild multilevel degenerative disc disease and spondylosis. Large amount of fecal retention. Electronically Signed: Meliton Agudelo MD at 20:24 EDT ,
[2021-12-22 20:29] VITALS: BP 118/60; PULSE 75; RESP 18
== END 2021-12-22 20:30 | disposition home or self-care (01) ==
PROVIDERS: Emergency Provider Emergency Medicine; PCP Internal Medicine; Visit Provider Emergency Medicine
DX: S06.0X0A Concussion without loss of consciousness, initial encounter (principal); G40.909 Epilepsy, unspecified, not intractable, without status epilepticus; S39.012A Strain of muscle, fascia and tendon of lower back, initial encounter; S20.221A Contusion of right back wall of thorax, initial encounter; V49.9XXA Car occupant (driver) (passenger) injured in unspecified traffic accident, initial encounter; Y93.89 Activity, other specified; Z79.82 Long term (current) use of aspirin; Z79.899 Other long term (current) drug therapy; Z86.73 Personal history of transient ischemic attack (TIA), and cerebral infarction without residual deficits
CPT/HCPCS: 71046; 72072; 72100; 99282

== ENCOUNTER 2022-02-04 09:31 | Emergency (ER) | payer MEDICARE, MEDICAID, SELFPAY ==
[2022-02-04 09:32] VITALS: BP 107/83; PULSE 75; RESP 16; TEMP 36.6; O2SAT 100; BMI 20.3
--- NOTE | 2022-02-04 11:04 | CT_ITS ---
EXAM: CT ABDOMEN AND PELVIS WITHOUT INTRAVENOUS CONTRAST CLINICAL INDICATION: Kidney Stone TECHNIQUE: Helically acquired images were obtained of the abdomen and pelvis without intravenous contrast. This CT exam was performed using one or more of the following dose reduction techniques: automated exposure control, adjustment of the mA and/or kV according to patient size, and/or use of iterative reconstruction technique. This report was created using Peerform report generation technology. COMPARISON: None. FINDINGS: LOWER THORAX: Normal. Lung bases are clear. No cardiomegaly. No pericardial effusion. ABDOMEN: LIVER: Normal. Homogeneous. GALLBLADDER AND BILE DUCTS: Normal. No calcified gallstones. No gallbladder distention or wall edema. No intra- or extrahepatic biliary ductal dilation. PANCREAS: Normal. No focal cystic mass. SPLEEN: Normal. Normal size without focal cystic or solid mass. ADRENALS: Normal. No nodules. KIDNEYS AND URETERS: No evidence of urinary tract stone disease. STOMACH AND BOWEL: Mild stool burden within the large bowel and rectum. PELVIS: APPENDIX: Surgical clips at the base of the cecum consistent with appendectomy. BLADDER: Normal. REPRODUCTIVE: Uterus is absent. ABDOMEN and PELVIS: INTRAPERITONEAL SPACE: Normal. No ascites or other fluid collection. No free air. BONES/JOINTS: Normal. No suspicious lytic or blastic abnormality. SOFT TISSUES: Normal. No discrete abdominal or pelvic wall hernia. VASCULATURE: Normal. Abdominal aorta is non-dilated. LYMPH NODES: Normal. No enlarged lymph nodes. CT/Abdomen/Pelvis without Cont IMPRESSION: 1. No acute abdominal or pelvic abnormality. 2. No evidence of urinary tract stone disease. Electronically Signed: Jimmy Mcclure MD at 13:09 EST ,
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
[2022-02-04 11:15] LABS: Bacteria 0 SEEN /hpf (None Seen); Mucous, Urine 0 SEEN /hpf (<or=2+); Red Blood Cells-Urine 0 SEEN /hpf (0-5); Squamous Epithelial Cells - UA 0 SEEN /hpf (5-10)
[2022-02-04 11:16] LABS: Glucose, Dipstick Normal (Normal); Ketone-Dipstick Negative (Negative); Occult Blood-Urine 250 /ul (Negative); Protein-Dipstick 30 mg/dl (Negative); Urine Bilirubin Dipstick Negative (Negative); Urine Clarity Clear (Clear); Urine Urobilinogen Normal (Normal)
[2022-02-04 11:29] LABS: Leukocyte Esterase-Dipstick 25 /ul (Negative); Nitrite-Dipstick Negative (Negative)
[2022-02-04 11:43] LABS: Color, Urine SEE COMMENT BELOW (Yellow)
[2022-02-04 11:45] LABS: Absolute Lymphocyte Count 1.09 X10^3/uL (0.83-4.51); Absolute Neutrophil Count 2.2 X10^3/uL (2.0-7.7); Basophil# 0.03 X10^3/uL; Basophil% 0.8 % (0-1); Eosinophil# 0.07 X10^3/uL; Eosinophils% 1.8 % (0-5); Hematocrit 40.1 % (37-47); Hemoglobin 13.6 g/dL (12.0-15.0); Lymphocyte # 1.09 X10^3/ul (0.83-4.51); Lymphocyte % 28.5 % (19-41); Mean Corp Hgb Conc 33.9 g/dL (32-36); Mean Corpuscular Hgb 32.2 pg (27.0-32.0); Mean Corpuscular Volume 94.8 fL (81-99); Mean Platelet Vol. 9.9 fl (6.2-12.0); Monocyte% 10.5 % (0-10); NRBC Flagged by Analyzer 0 % (0-5); Neutrophil # 2.22 X10^3/uL (2.7-7.7); Neutrophil % 58.1 % (47-70); Platelet Count 176 K/mm3 (150-450); RBC Distribution Width SD 45.1 fl (35.1-43.9); Red Blood Count 4.23 M/mm3 (4.2-5.4); White Blood Count 3.8 K/mm3 (4.4-11.0)
[2022-02-04 11:52] LABS: Anion Gap 2 (5-15); BUN 14 mg/dL (7-18); BUN/Creat Ratio 16.8 RATIO (10-20); Calcium,Total 8.7 mg/dL (8.5-10.1); Chloride 111 mmol/L (98-107); Creatinine, Serum 0.83 mg/dL (0.55-1.02); EST Glomerular Filtration Rate 79 mL/min (>60); Est Glom Filt Rate - Afr Amer 96 mL/min (>60); Estimated Creatinine Clearance 81.36 ml/min; Glucose 92 mg/dL (74-106); Potassium 4.5 mmol/L (3.5-5.1); Sodium Level 140 mmol/L (136-145)
[2022-02-04 12:04] LABS: White Blood Cells 50-100 SEEN /hpf (0-5)
[2022-02-04 14:21] VITALS: BP 123/75; PULSE 80; RESP 15; O2SAT 99
== END 2022-02-04 14:29 | disposition home or self-care (01) ==
PROVIDERS: Emergency Provider Student in an Organized Health Care Education/Training Program; PCP Internal Medicine; Visit Provider Student in an Organized Health Care Education/Training Program
DX: R31.9 Hematuria, unspecified (principal); D72.819 Decreased white blood cell count, unspecified
CPT/HCPCS: 74176; 80048; 81001; 85025; 87086; 99283; A4216

== ENCOUNTER → 2022-02-24 | Outpatient (CLI) | payer MEDICARE, MEDICAID, SELFPAY ==
--- NOTE | 2022-02-24 08:00 | CYSPIN_PTH ---
PATIENT: GO HARTLEY LOC: [facility] U#:[id number] AGE/SX: 41/F ROOM: RE02/24/[address]: Dr. Monisha Turner MD : 1980 BED: DIS: 02/24/2022 SPEC #: [id number] RECD: 02/27/22 07:28 STATUS: JOHANNE REAimee #: [id number] BANDAR: 02/24/22 08:[address]: Monisha Turner DEPT: CYTOLOGY RECD BY: Radha Mcneal ENTERED: 02/27/22 07:29 SP TYPE: CYSPIN FL OTHR DR: Dr. Dora Day MD Tissues: Urine Procedures: Pap Stain (control) Special Stain Group II Cytospin Fluid HEADER OPERATION: Not noted PRE-OP DIAGNOSIS: Gross hematuria TISSUE SUBMITTED: Urine for cytology DIAGNOSIS CYTOLOGY Urine for cytology (cytospin): Negative for malignant cells. See comment. AM:ira 02/27/2022 COMMENT The specimen primarily consists of squamous epithelial cells. Clinical correlation is suggested. CYTOLOGY STUDY Slides are reviewed. CYTOLOGY GROSS Received is 40 ml of yellow cloudy fluid labeled with the patient's name and and designated per the requisition as urine. Submitted for cytology preparation. / ira 02/24/2022 TC:5 CPT: 27501
[2022-02-24 17:31] LABS: Cytology, Body Fluid / CSF SEE PATHOLOGY REPORT
== END | disposition home or self-care (01) ==
PROVIDERS: PCP Internal Medicine; Referring Provider Urology; Visit Provider Urology
DX: R31.0 Gross hematuria (principal)
CPT/HCPCS: 88108; 88313

== ENCOUNTER → 2022-04-20 | Outpatient (CLI) | payer MEDICARE, MEDICAID, SELFPAY ==
--- NOTE | 2022-04-20 08:38 | BI_ITS ---
MAMMOGRAPHY - BILATERAL SCREENING REASON FOR EXAM: Female, 41 years old. Routine annual screening examination. PERTINENT HISTORY: Non-contributory. TECHNIQUE: Digital bilateral breast chalino (3D mammographic acquisition) in the CC and MLO projections. 2-D mediolateral oblique (MLO) and craniocaudad (CC) views of both breasts were obtained. CAD: Full Field Digital Mammography with Computer Added Detection was performed. COMPARISON: Comparison is made with prior study to April 18, 2021 and April 15, 2020. FINDINGS: Breast Composition: The breasts are extremely dense, which lowers the sensitivity of mammography. There are no dominant masses or suspicious calcifications. No other significant abnormalities are identified. There has been no significant change since the prior study. BI/SCRN MAMM (CAD)W/CHALINO BILAT IMPRESSION: Stable bilateral screening mammogram. Yearly follow-up mammogram recommended. (A) ASSESSMENT CATEGORY: BIRADS Category 2: Benign. A letter regarding these results will be sent to the patient by the facility within 30 days. Approximately 10% of breast cancers are not detected by mammography. A normal mammogram should not delay biopsy of a clinically suspicious abnormality. [id number] Electronically Signed: Cyrus Haywood MD at 9:34 EST ,
== END | disposition home or self-care (01) ==
LOC: OPBI 08:36
PROVIDERS: PCP Internal Medicine; Visit Provider Obstetrics & Gynecology
DX: Z12.31 Encounter for screening mammogram for malignant neoplasm of breast (principal)
CPT/HCPCS: 77063; 77067

== ENCOUNTER → 2023-05-16 | Outpatient (CLI) | payer MEDICARE, MEDICAID, SELFPAY ==
--- NOTE | 2023-05-16 07:04 | BI_ITS ---
MAMMOGRAPHY - BILATERAL SCREENING REASON FOR EXAM: Female, 42 years old. Routine annual screening examination. PERTINENT HISTORY: Non-contributory. TECHNIQUE: Digital bilateral breast chalino (3D mammographic acquisition) in the CC and MLO projections. 2-D mediolateral oblique (MLO) and craniocaudad (CC) views of both breasts were obtained. CAD: Full Field Digital Mammography with Computer Added Detection was performed. COMPARISON: Comparison is made with prior study of April 20, 2022 and April 18, 2021. FINDINGS: Breast Composition: The breasts are extremely dense, which lowers the sensitivity of mammography. There are no dominant masses or suspicious calcifications. No other significant abnormalities are identified. There has been no significant change since the prior study. BI/SCRN MAMM (CAD)W/CHALINO BILAT IMPRESSION: Stable bilateral screening mammogram. Yearly follow-up mammogram recommended. (A) ASSESSMENT CATEGORY: BIRADS Category 1: Negative. A letter regarding these results will be sent to the patient by the facility within 30 days. Approximately 10% of breast cancers are not detected by mammography. A normal mammogram should not delay biopsy of a clinically suspicious abnormality. [id number] Electronically Signed: Cyrus Haywood MD at 9:29 EDT ,
== END | disposition home or self-care (01) ==
LOC: OPBI 07:04
PROVIDERS: PCP Internal Medicine; Referring Provider Obstetrics & Gynecology; Visit Provider Obstetrics & Gynecology
DX: Z12.31 Encounter for screening mammogram for malignant neoplasm of breast (principal)
CPT/HCPCS: 77063; 77067

== ENCOUNTER → 2024-05-21 | Outpatient (CLI) | payer MEDICARE, MEDICAID, SELFPAY ==
--- NOTE | 2024-05-21 07:12 | BI_ITS ---
EXAM: SCRN MAMM (CAD)W/CHALINO BILAT 05/21/2024 CLINICAL HISTORY: F, Age 43 y/o , SCREENING TECHNIQUE: Bilateral screening digital breast tomosynthesis with 2D and 3D images. Computer aided detection. COMPARISON: Prior exam(s) dated 05/16/2023, 04/20/2022. FINDINGS: TISSUE DENSITY: The breast tissue is heterogenously dense, which may obscure small masses. The mammogram demonstrates that the patient has dense breasts. Supplemental screening with whole breast ultrasound or MRI may be considered for further evaluation. Bilateral Breast Mammographic Findings: No significant masses, calcifications or other abnormalities are identified. The parenchymal pattern is unchanged. BI/SCRN MAMM (CAD)W/CHALINO BILAT IMPRESSION: Right Breast: BIRADS 1 NEGATIVE. Left Breast: BIRADS 1 NEGATIVE. OVERALL FINAL ASSESSMENT: BIRADS 1 NEGATIVE. RECOMMENDATION: Routine annual follow-up in 1 Year A letter with findings and recommendations will be mailed to the patient. Reading Location: [id number]
== END | disposition home or self-care (01) ==
LOC: OPBI 07:11
PROVIDERS: PCP Internal Medicine; Referring Provider Obstetrics & Gynecology; Visit Provider Obstetrics & Gynecology
DX: Z12.31 Encounter for screening mammogram for malignant neoplasm of breast (principal)
CPT/HCPCS: 77063; 77067

== ENCOUNTER 2025-02-02 15:17 | Emergency (ER) | payer MEDICARE, MEDICAID, SELFPAY ==
[2025-02-02 15:18] VITALS: BP 107/88; PULSE 87; RESP 16; TEMP 36.6; O2SAT 100; BMI 24.3
[2025-02-02 19:18] VITALS: BP 113/90; PULSE 70
--- NOTE | 2025-02-02 19:30 | RAD_ITS ---
PROCEDURE: LEFT HUMERUS MIN 2 VIEWS 02/02/2025 REASON FOR EXAM: PAIN TECHNIQUE: Procedure Code: RADHUM Modality: DX Procedure: HUMERUS MIN 2 VIEWS Laterality: Left COMPARISON: None. FINDINGS: No acute fracture or dislocation. Alignment is anatomic. Preserved visualized joint spaces. No aggressive osseous lesion. No marked soft tissue swelling or radiopaque foreign body. RAD/Humerus min 2 Views IMPRESSION: No acute fracture or dislocation. Reading Location: [id number]
--- NOTE | 2025-02-02 19:30 | RAD_ITS ---
PROCEDURE: LEFT FOREARM 2 VIEWS 02/02/2025 REASON FOR EXAM: PAIN TECHNIQUE: Procedure Code: RADFA Modality: DX Procedure: FOREARM 2 VIEWS Laterality: Left COMPARISON: None. FINDINGS: No acute fracture or dislocation. Alignment is anatomic. Preserved visualized joint spaces. No aggressive osseous lesion. No marked soft tissue swelling or radiopaque foreign body. RAD/Forearm 2 Views IMPRESSION: No acute fracture or dislocation. Reading Location: [id number]
[2025-02-02] MEDS: Ketorolac 30 MG/ML Syringe IM ×2 (19:54)
--- NOTE | 2025-02-02 20:21 | EX.ED.UPPERE ---
HPI History of Present Illness Chief Complaint: Upper Extremity Injury Narrative Narrative: Patient is a 44-year-old female past medical history of anemia, seizures, migraines, HSV who presented to the emergency department chief complaint of left arm and left elbow pain. States this been going on for since October however states that she could not take the pain any longer. She noted that she was given a course steroids in the past which seemed to help with pain of the noted that this has returned. Patient denies any injury or direct trauma. States that she does do a lot of yoga. Denies any fevers or chills denies a history of IV drug use. [facility] Medical History Anal fissure Brain aneurysm genital warts Abnormal Pap smear of cervix Anemia Migraines Seizures Stroke HSV (herpes simplex virus) infection Home Medications ?Medication ?Instructions ?Recorded ?Last Taken ?Type aspirin 81 mg tablet,delayed 81 mg PO QHS 01/25/17 Unknown History release (Adult Aspirin Regimen) clobazam 10 mg tablet (Onfi) 10 mg PO BID SEIZURES 01/25/17 01/28/18 History cixtkxjqbeml-Hp-zhbp-minerals 27 1 ea PO DAILY 02/27/20 Unknown History mg-0.4 mg tablet polyethylene glycol 3350 17 gram 17 g PO BID 02/27/20 Unknown History oral powder packet doxepin 10 mg capsule 10 mg PO DAILY 03/25/20 Unknown History vibegron 75 mg tablet (Gemtesa) 75 mg PO DAILY 04/04/23 Unknown History fesoterodine 4 mg tablet,extended 4 mg PO QDAY 90 days #90 tabs 09/19/24 Unknown Rx release 24 hr (Toviaz) acyclovir 800 mg tablet 800 mg PO TID #6 tabs 01/27/25 Unknown Rx lacosamide 200 mg tablet 300 mg PO BID 02/02/25 Unknown History minocycline 50 mg capsule 50 mg PO BID 02/02/25 Unknown History spironolactone 50 mg tablet mg PO 02/02/25 Unknown History topiramate 200 mg tablet mg PO 02/02/25 Unknown History Allergy/AdvReac Type Severity Reaction Status Date / Time calcium (From DHEA) Allergy Mild Unknown Verified 02/02/25 15:20 calcium carbonate (From DHEA) Allergy Mild Unknown Verified 02/02/25 15:20 levetiracetam (From Keppra) Allergy Mild NEEDS Verified 02/02/25 15:20 FOLLOW-UP metronidazole (From Flagyl) Allergy Mild Unknown Verified 02/02/25 15:20 oxcarbazepine (From Allergy Mild Unknown Verified 02/02/25 15:20 Trileptal) prasterone (DHEA) (From DHEA) Allergy Mild Unknown Verified 02/02/25 15:20 sumatriptan (From Imitrex) Allergy Mild Unknown Verified 02/02/25 15:20 duloxetine (From Cymbalta) Allergy Unknown Verified 02/02/25 15:20 gabapentin (From Neurontin) Allergy Unknown Verified 02/02/25 15:20 hydromorphone (From Dilaudid) Allergy Unknown Verified 02/02/25 15:20 Family History Father Colon cancer Other Diabetes Heart disease Surgical History History of colonoscopy Fissure in skin History of appendectomy History of bladder surgery H/O brain surgery H/O: hysterectomy Social History household members: spouse Smoking Status: Never smoker alcohol intake: never substance use type: does not use caffeine: No what type of physical activity do you participate in: walking frequency: 3-4 times per week seatbelt use: always do you feel safe at home: Yes additional social history: Patient is and not working anywhere currently ROS ROS ED ROS Narrative Constitutional: Denies fevers or chills Neurological: Denies any numbness or tingling Musculoskeletal: Complains of left arm pain in her mid forearm near her wrist radiating up to her elbow Skin: Denies any rashes or lesions EXAM Physical Exam Narrative Exam Narrative: General: Patient was lying in bed rest comfortably not appear to be acute Head: Atraumatic, normocephalic Eyes: PERRL bilaterally, EOMI bilaterally, no conjunctival injection Neck: Soft, supple, trachea Cardiovascular: Regular rate rate Musculoskeletal: Patient has full range of motion of her joints in the left upper extremity compartments are soft and compressible Extremities: Radial pulses +2/4 in the left upper extremity, +5/5 strength noted in the bilateral lower extremities, positive Camron's test Neurological: Patient following commands that she was at [facility] years 2024 sensation grossly intact Skin: Warm, dry, tact no rashes or lesions noted Const Vital Signs: 02/02/25 15:18 02/02/25 19:18 Temperature 98 F Temperature Source Oral Pulse Rate 87 70 Respiratory Rate 16 Blood Pressure 107/88 H 113/90 H Blood Pressure Mean 94 97 Pulse Ox 100 Oxygen Delivery Method Room Air MDM MDM MDM Narrative Medical decision making narrative: Patient is a 44-year-old female who presented to the emergency department with a chief complaint of left forearm pain rating up to her left elbow. On the differential diagnose includes but not limited to musculoskeletal strain,dequervaians tenosynovitis. Once the workup is obtained and reviewed she will be reevaluated. Patient will be given Toradol intramuscular. Nursing notified me that the patient is requesting 60 mg of IM Toradol as she states that doses small and this did not help her which was ordered. Take ovarian cyst send divided patient's x-ray of her humerus reviewed by myself by radiology showed no acute fracture or dislocation. Patient's x-ray of her forearm on the left side reviewed by myself and by radiology as well which showed no no acute fracture or dislocation I did discuss the results with the patient and she would like to go home. She will be given a removable thumb spica splint for comfort she was advised to use NSAIDs for pain control and follow-up with her doctor and her orthopedic surgeon that she was referred to as well. She is advised to take steroid taper pack as prescribed as well. She is agreeable to plan all question concerns answered she is discharged home in stable condition. Radiography Diagnostic Testing: Clinical Impression(s) from Imaging Studies Forearm X-Ray 02/02/25 19:30 IMPRESSION: No acute fracture or dislocation. Reading Location: [facility] Humerus X-Ray 02/02/25 19:30 IMPRESSION: No acute fracture or dislocation. Reading Location: [facility] Discharge Plan Triage Chief Complaint: Upper Extremity Injury ED Provider: Raymundo Cohen Dx/Rx/DC Orders Clinical Impression: De Quervain's tenosynovitis, History of migraine, History of seizures Prescriptions: No Action clobazam [Onfi] 10 mg tablet 10 mg PO BID aspirin [Adult Aspirin Regimen] 81 mg tablet,delayed release (DR/EC) 81 mg PO QHS Patient Comments: WAS TOLD TO ASK ABOUT STOPPING doxepin 10 mg capsule 10 mg PO DAILY Gemtesa 75 mg tablet 75 mg PO DAILY fesoterodine [Toviaz] 4 mg tablet extended release 24 hr 4 mg PO QDAY 90 Days Qty: 90 3RF acyclovir 800 mg tablet 800 mg PO TID Qty: 6 0RF polyethylene glycol 3350 17 GM packet 17 g PO BID fddbzwqtopjr-Ow-yedj-minerals 1 EACH tablet 1 ea PO DAILY minocycline 50 mg capsule 50 mg PO BID topiramate 200 mg tablet PO spironolactone 50 mg tablet PO lacosamide 200 mg tablet 300 mg PO BID Primary Care Provider: Dora Day Referrals: Dora Day MD [Primary Care Provider, Internal Medicine] Activity Restrictions/Additional Instructions: Follow-up with the orthopedic surgeon referred to follow-up with your eye doctor as well. Take anti-inflammatories for pain control use the splint as we discussed. Your x-rays did not show any acute findings. Print Language: Citizen Of [place] Disposition Disposition: Home, Self Care
[2025-02-02 20:47] VITALS: BP 109/84; PULSE 64; RESP 16; TEMP 36.7; O2SAT 100
== END 2025-02-02 20:47 | disposition home or self-care (01) ==
PROVIDERS: Emergency Provider Emergency Medicine; PCP Internal Medicine; Visit Provider Emergency Medicine
DX: M65.4 Radial styloid tenosynovitis [de Quervain] (principal); G40.909 Epilepsy, unspecified, not intractable, without status epilepticus; Z79.899 Other long term (current) drug therapy
CPT/HCPCS: 73060; 73090; 96372; 99282

== ENCOUNTER → 2025-02-09 | Outpatient (CLI) | payer MEDICARE, MEDICAID, SELFPAY | END | disposition home or self-care (01) | PROVIDERS: PCP Internal Medicine; Referring Provider Orthopaedic Surgery; Visit Provider Orthopaedic Surgery | DX: M79.632 Pain in left forearm (principal) | CPT/HCPCS: 73218 ==